=== PATIENT | female | born 1965 | race Caucasian/White ===

== ENCOUNTER 2022-12-25 12:10 | Outpatient (CLI) | payer OTHER ==
[2022-12-25 13:09] LABS: Hematocrit 35.6 % (34.9-44.5); Mean Corpuscular HGB CONC 30.9 g/dL (32.0-36.0); Mean Corpuscular Hemoglobin 26.2 pg (27.0-33.0); Mean Corpuscular Volume 84.8 fl (81.6-98.3); Mean Platelet Volume 9.9 fl (7.4-10.4); Platelet Count 305 10x3/uL (150-450); RBC Distribution Width 13.1 % (11.5-14.5); White Blood Cell (WBC) Count 5.7 10x3/uL (3.5-10.5)
[2022-12-25 14:06] LABS: Calcium 8.7 mg/dL (7.8-10.44); Chloride 106 mmol/L (98-107); Potassium 4.3 mmol/L (3.5-5.1); Sodium 142 mmol/L (136-145)
[2022-12-25 14:09] LABS: INR-International Normal Ratio 1.4; Prothrombin Time 14.3 sec (9.5-12.1)
[2022-12-25 14:43] LABS: BUN (Urea Nitrogen) 14 mg/dL (9.8-20.1); Calc. Creatinine Clearance 0 mL/min (70-130); Carbon Dioxide 26 mmol/L (22-29); Estimated GFR 62; Glucose 82 mg/dL (70-105)
[2022-12-25 15:03] LABS: Anion Gap 14 mmol/L (10-20)
[2022-12-26 00:27] LABS: Hemoglobin A1c 5.5 % (4.0-6.0)
== END 2022-12-25 12:11 | disposition home or self-care (01) ==
LOC: CSHLAB 12:10
PROVIDERS: ATTEND Orthopaedic Surgery
DX: Z01.812 Encounter for preprocedural laboratory examination (principal); M16.12 Unilateral primary osteoarthritis, left hip
CPT/HCPCS: 80048; 82306; 83036; 85027; 85610; 87081

== ENCOUNTER 2023-01-15 11:38 | Inpatient (IN) | payer OTHER ==
[2022-12-25 13:04] VITALS: BMI 25.5
[2023-01-15] MEDS ORDERED: Acetaminophen 325 MG TAB ONE (11:58)
[2023-01-15] MEDS ORDERED: Gabapentin 300 MG CAP ONE (11:59)
[2023-01-15] MEDS ORDERED: Ketorolac Tromethamine 30 MG/ML VIAL ONE ×2 (12:51→14:08)
[2023-01-15] MEDS ORDERED: CEFAZOLIN 2 GM VIAL ONE (13:10)
[2023-01-15] MEDS ORDERED: Bupivacaine PF 0.5% 30 ML VIAL ONE (13:10)
[2023-01-15] MEDS ORDERED: Gentamicin 80 MG/2 ML VIAL ONE (13:10)
[2023-01-15] MEDS ORDERED: EPINEPHrine 1 MG/ML VIAL ONE ×2 (13:10→14:08)
[2023-01-15] MEDS ORDERED: Vancomycin 1 GM VIAL ONE (13:11)
[2023-01-15] MEDS ORDERED: Fentanyl 250 MCG/5 ML VIAL ONE (13:25)
[2023-01-15] MEDS ORDERED: Ondansetron PF 4 MG/2 ML Vial ONE (13:25)
[2023-01-15] MEDS ORDERED: Dexamethasone 20 MG/5 ML VIAL ONE (13:25)
[2023-01-15] MEDS ORDERED: Lidocaine 1% PF 5 ML VIAL ONE (13:25)
[2023-01-15] MEDS ORDERED: Rocuronium Bromide 10 MG/ML (10ML VIAL) ONE (13:25)
[2023-01-15] MEDS ORDERED: PROPOFOL 20 ML ONE (13:25)
[2023-01-15] MEDS ORDERED: Midazolam HCl 2 mg/2 ml Vial ONE (13:25)
[2023-01-15] MEDS ORDERED: PHENYLEPHRINE-NS 100 MCG/ML 10 ML SYRINGE ONE (13:26)
[2023-01-15] MEDS ORDERED: Tranexamic Acid 1,000 MG/10 ML VIAL ONE (13:36)
[2023-01-15] MEDS ORDERED: Acetaminophen 325 MG TAB PO PRN (13:46)
[2023-01-15] MEDS ORDERED: diphenhydrAMINE 25 MG CAP PO PRN (13:46)
[2023-01-15] MEDS ORDERED: Zolpidem Tartrate 5 MG TAB PO PRN (13:46)
[2023-01-15] MEDS ORDERED: Ondansetron PF 4 MG/2 ML Vial IVP PRN (13:46)
[2023-01-15] MEDS ORDERED: Morphine 2 MG/ML VIAL SLOW IVP PRN (13:46)
[2023-01-15] MEDS ORDERED: Morphine 10 MG/ML VIAL ONE (14:07)
[2023-01-15] MEDS ORDERED: Ropivacaine 0.2% HCl/PF 40 ML ONE (14:08)
[2023-01-15] MEDS ORDERED: Meperidine HCl/PF 25 MG/ML VIAL ONE (15:57)
[2023-01-15] MEDS ORDERED: FLU VACC QS2023-24(6MOS UP)/PF 60 MCG/0.5 ML SYRINGE IM ONE (18:15)
[2023-01-15] MEDS ORDERED: Morphine 4 MG/ML VIAL ONE (18:48)
[2023-01-15] MEDS: CEFAZOLIN 2 GM in Sodium Chloride 0.9% 100 ML IVPB SCH (22:19)
[2023-01-15] MEDS: Senokot S 8.6-50 MG TAB PO SCH (22:23)
[2023-01-15] MEDS: Ferrous Gluconate 324 MG TAB PO SCH (22:23)
[2023-01-15] MEDS: Sodium Chloride 0.9% 1,000 ML IV SCH (22:23)
[2023-01-15] MEDS: HYDROcodone/Acetaminophen 10/325 mg Tablet PO PRN (22:34)
[2023-01-16] MEDS: Ketorolac Tromethamine 30 MG/ML VIAL IM SCH ×3 (02:24→13:15)
[2023-01-16 03:54] LABS: Hematocrit 31.4 % (34.9-44.5); Mean Corpuscular HGB CONC 31.8 g/dL (32.0-36.0); Mean Corpuscular Hemoglobin 27.2 pg (27.0-33.0); Mean Corpuscular Volume 85.6 fl (81.6-98.3); Mean Platelet Volume 10.1 fl (7.4-10.4); Platelet Count 293 10x3/uL (150-450); RBC Distribution Width 14.3 % (11.5-14.5); Red Blood Cell (RBC) Count 3.67 10x6/uL (3.90-5.03); White Blood Cell (WBC) Count 11.8 10x3/uL (3.5-10.5)
[2023-01-16] MEDS: Sodium Chloride 0.9% 1,000 ML IV SCH (05:06)
[2023-01-16] MEDS: CEFAZOLIN 2 GM in Sodium Chloride 0.9% 100 ML IVPB SCH (05:11)
[2023-01-16] MEDS: Senokot S 8.6-50 MG TAB PO SCH (08:15)
[2023-01-16] MEDS: Ferrous Gluconate 324 MG TAB PO SCH (08:15)
[2023-01-16] MEDS: HYDROcodone/Acetaminophen 10/325 mg Tablet PO PRN ×2 (08:17→14:21)
[2023-01-16] MEDS ORDERED: Multivitamin W/ Minerals 1 TAB PO SCH (09:00)
[2023-01-16 12:48] VITALS: BP 123/58; TEMP 98
[2023-01-21] MEDS ORDERED: CeleCOXIB 100 MG CAP PO SCH (09:00)
== END 2023-01-16 15:00 | disposition home or self-care (01) | DRG 470 ==
LOC: CSHSDC 11:38 → CSHTELE 13:46
PROVIDERS: ADMIT Orthopaedic Surgery; ATTEND Orthopaedic Surgery
PROC: 0SRB0JZ Replacement of Left Hip Joint with Synthetic Substitute, Open Approach (ICD-10-PCS; principal; 2023-01-15)
PROC: 3E033XZ Introduction of Vasopressor into Peripheral Vein, Percutaneous Approach (ICD-10-PCS; 2023-01-15)
DX: M16.0 Bilateral primary osteoarthritis of hip (principal); J30.1 Allergic rhinitis due to pollen
CPT/HCPCS: 36415; 72170; 85027; C1776; A6198; C1713; J0171; J1100; J1580; J1650; J1885; J2175; J2250; J2270; J2405; J2704; J2795; J3010; J3370; J3490; J7050; S0020